=== PATIENT | female | born 1990 | race Two or more races ===

== ENCOUNTER 2024-03-20 08:20 | Outpatient (CLI) | payer MEDICAID, SELFPAY ==
--- NOTE | 2024-03-20 08:15 | CRLHL7_ITS ---
For Patients: As a result of the Century Cures Act, medical imaging exams and procedure reports are released immediately into your electronic medical record. You may view this report before your referring provider. If you have questions, please contact your health care provider. INDICATION: OB ultrasound for dates and viability. LMP: 01/23/2024. JENNIFER by LMP: 10/29/2023. . P: 1. Single. CRL: 1.7 cm, 8 w, 1 d. JENNIFER 10/29/2024. FHR: 176 bpm. Gestational sac: 2.7 cm, appears within normal limits. Yolk sac: 2.8 mm, appears within normal limits. Right ovary: Not visualized. Left ovary: Not visualized. IMPRESSION: 1. Single viable intrauterine . 2. Measurements are consistent with dates. 3. Tiny subchorionic hemorrhage measuring 1.2 cm in maximum diameter. BREA ZAMORA M.D. [email or web address] be/Dictated by: Brea Zamora MD @ 03/20/2024 3:22:00 PM (Electronically Signed)
== END 2024-03-20 08:21 | disposition home or self-care (01) ==
LOC: US 08:28
PROVIDERS: PCP Physician Assistant; Visit Provider Physician Assistant
DX: Z34.91 Encounter for supervision of normal pregnancy, unspecified, first trimester (principal); Z3A.08 8 weeks gestation of pregnancy
CPT/HCPCS: 76817; T1013

== ENCOUNTER 2024-03-20 10:09 | Outpatient (CLI) | payer MEDICAID, SELFPAY ==
[2024-03-20 14:25] LABS: GC DNA Amplified* NOT DETECTED (No Detected)
[2024-03-20 15:13] LABS: Chlamydia DNA Amplified* DETECTED (No Detected)
== END 2024-03-20 10:10 | disposition home or self-care (01) ==
PROVIDERS: PCP Physician Assistant; Visit Provider Physician Assistant
DX: Z34.91 Encounter for supervision of normal pregnancy, unspecified, first trimester (principal); Z3A.08 8 weeks gestation of pregnancy
CPT/HCPCS: 86592; 86703; 86704; 86706; 86762; 86787; 86803; 86850; 86900; 86901; 87086; 87340; 87491; 87591

== ENCOUNTER 2024-04-18 15:30 | Outpatient (CLI) | payer MEDICAID, SELFPAY ==
[2024-04-18 18:33] LABS: Chlamydia DNA Amplified* NOT DETECTED (No Detected); GC DNA Amplified* NOT DETECTED (No Detected)
== END 2024-04-18 15:31 | disposition home or self-care (01) ==
LOC: NFLDREF 16:19
PROVIDERS: Visit Provider Obstetrics & Gynecology
DX: A74.9 Chlamydial infection, unspecified (principal)
CPT/HCPCS: 87491; 87591

== ENCOUNTER 2024-05-28 17:25 | Emergency (ER) | payer BC, SELFPAY ==
[2024-05-28 17:32] VITALS: BP 125/74; PULSE 91; RESP 16; TEMP 36.9; O2SAT 98; BMI 27.6
[2024-05-28 18:01] LABS: Appearance Urine Clear (Clear); Bilirubin Urine Negative (Negative); Blood Urine Negative (Negative); Color Urine Yellow (Yellow); Glucose Urine Negative (Negative); Ketones Urine Negative (Negative); Leukocyte Esterase Urine Negative (Negative); Nitrite Urine Negative (Negative); Protein Urine Negative (Negative); Specific Gravity Urine 1.015 (1.000-1.030); Urobilinogen Urine 0.2 (0.2-1.0)
[2024-05-28 18:11] LABS: RBC Urine 0-2 (0-2); WBC Urine 0-2 (0-5)
[2024-05-28 18:12] LABS: Squamous Epithelial Cell Urine Few (None-Few)
--- NOTE | 2024-05-28 18:28 | ED.GENADULT ---
HPI - General Adult General Chief complaint: OB/Uterine Contractions Stated complaint: 20 wks preg, slight bleeding and severe cramping Time Seen by Provider: 05/28/24 18:13 Source: patient Mode of arrival: ambulatory Limitations: no limitations History of Present Illness HPI narrative: 33-year-old female, at 18.4 weeks coming in today complaining of vaginal pressure. Patient states that if she stands up for a long time she feels a lot of pressure in the vaginal area, including her labia. states that she feels that her veins are bulging externally. She states that she had 1 drop of blood today that she believes is vaginal. She states that she also had clear vaginal discharge x1 earlier today. She states that was a very small amount. Did not soak through her pants. She denies cramping or contractions. She denies constipation. She denies dysuria. Denies abdominal pain, fevers, chills or vomiting. Related Data Home Medications ?Medication ?Instructions ?Recorded ?Confirmed docosahexaenoic acid 200 mg mg PO 03/20/24 05/15/24 capsule ( DHA) calcium carbonate (Tums) 200 mg PO BID PRN 04/18/24 05/15/24 Allergies Allergy/AdvReac Type Severity Reaction Status Date / Time No Known Drug Allergies Allergy Verified 05/15/24 15:23 Review of Systems Status of ROS: Reports: 10 or more systems reviewed and unremarkable except as noted in History and below [facility] Medical History History of vaginal delivery Surgical History History of abdominoplasty ?Z98.890 - Other specified postprocedural states (ICD-10) Social History Narrative: SOCIAL HISTORY: Occupation: Homemaker. Marital status: Significant other. Mu-Ism/cultural needs: no. Chemical or radiation exposure: no. Pre- tobacco use: 5 per day, quit with positive test Pre- alcohol use: no. Current tobacco use: no. Current alcohol use: no. Recreational drug use: no. Dietary restrictions: no. Blood transfusion acceptable in an emergency: yes. PSYCHOSOCIAL HISTORY: History of depression or currently depressed: no. Current or past physical, emotional, or sexual mistreatment: no. Problems that will make it hard to make it to appointments: no. Little interest or pleasure in doing things: several days Feeling down, depressed, or hopeless: nearly every day Exam Narrative: Exam Narrative: Well-nourished well-developed patient in no acute distress. Alert and oriented. Answers questions appropriately. Mood and affect are appropriate. Thoughts are goal oriented and rational. No tangential or magical thinking noted. Patient speaks in full sentences without needing to catch her breath. She does not appear ill or toxic. HEENT: Normocephalic atraumatic. Pupils are equally round reactive to light. Extraocular muscles are intact. Conjunctivae are moist without any icterus noted. Moist mucous membranes. : Normal external female genitalia. There is no labial swelling, there is no areas of fluctuance, tenderness. There is no evidence of abscess or swollen glands. There is no vaginal bleeding, no vaginal discharge in the vaginal vault. No fluid noted in the vault. There is no tenderness to palpation of the vaginal nam. There is no swollen vasculature noted, no erythema. There is no vaginal dryness or atrophy. Exam was entirely normal. However, when I touch the patient's labia she states that it is uncomfortable on both sides. Const: Vital Signs, click to edit/add: Vital Signs - 24 hr 05/28/24 17:32 Temperature 98.4 F Pulse Rate [Pulse Oximeter] 91 Respiratory Rate 16 Blood Pressure [Ri ght Upper Arm] 125/74 Pulse Oximetry 98 Oxygen Delivery Me thod Room Air Course Vital Signs Vital signs: Initial Vital Signs Temperature 98.4 F 05/28/24 17:32 Temperature Source Temporal Artery Scan 05/28/24 17:32 Pulse Rate 91 05/28/24 17:32 Respiratory Rate 16 05/28/24 17:32 Blood Pressure 125/74 05/28/24 17:32 Blood Pressure Mean 91 05/28/24 17:32 Pulse Oximetry 98 05/28/24 17:32 Oxygen Delivery Method Room Air 05/28/24 17:32 Vital Signs Temperature 98.4 F 05/28/24 17:32 Pulse Rate 91 05/28/24 17:32 Respiratory Rate 16 05/28/24 17:32 Blood Pressure 125/74 05/28/24 17:32 Pulse Oximetry 98 05/28/24 17:32 Oxygen Delivery Method Room Air 05/28/24 17:32 Temperature 98.4 F 05/28/24 17:32 Pulse Rate 91 05/28/24 17:32 Respiratory Rate 16 05/28/24 17:32 Blood Pressure 125/74 05/28/24 17:32 Pulse Oximetry 98 05/28/24 17:32 Oxygen Delivery Method Room Air 05/28/24 17:32 Medical Decision Making MDM Narrative Medical decision making narrative: 33-year-old female with sensation of pressure in her vagina. We discussed this can happen with each subsequent . I discussed with her that her exam is entirely normal today. Patient was reassured. I discussed following up with her primary care provider if she feels like her symptoms are not improving or certainly if they are getting worse. Patient had no other questions. Lab Data Labs: Lab Results 05/28/24 Range/Units 17:50 Urine Color Yellow (Yellow) Urine Appearance Clear (Clear) Urine pH 6.0 (5.0-8.5) Ur Specific [place] 1.015 (1.000-1.030) Urine Protein Negative (Negative) Urine Glucose (UA) Negative (Negative) Urine Ketones Negative (Negative) Urine Blood Negative (Negative) Urine Nitrite Negative (Negative) Urine Bilirubin Negative (Negative) Urine Urobilinogen 0.2 (0.2-1.0) Ur Leukocyte Esterase Negative (Negative) Urine RBC 0-2 (0-2) Urine WBC 0-2 (0-5) Ur Squamous Epith Cells Few (None-Few) Urine Bacteria None (None) Discharge Plan Discharge Clinical Impression: Discomfort of vagina Patient Disposition: Home, Self-Care Condition: Stable Additional Instructions: Follow-up with your OBGYN as scheduled. Prescriptions: No Action DHA 200 mg capsule PO calcium carbonate [Tums] 200 mg calcium (500 mg) tablet,chewable 200 mg PO BID PRN Follow Up/Referrals: Provider,Not a Local [Primary Care Provider] - Stand Alone Forms: [facility] Info Instructions
[2024-05-28 18:52] VITALS: BP 125/74; PULSE 91; RESP 16; TEMP 36.9
== END 2024-05-28 18:56 | disposition home or self-care (01) ==
LOC: ED 18:59
PROVIDERS: Emergency Provider Family Medicine
DX: N89.8 Other specified noninflammatory disorders of vagina (principal)
CPT/HCPCS: 81001; 99283; 99284

== ENCOUNTER 2024-06-12 14:06 | Outpatient (CLI) | payer BC, SELFPAY ==
--- NOTE | 2024-06-12 14:00 | CRLHL7_ITS ---
For Patients: As a result of the Century Cures Act, medical imaging exams and procedure reports are released immediately into your electronic medical record. You may view this report before your referring provider. If you have questions, please contact your health care provider. INDICATION: Evaluate anatomy. COMPARISON: 03/20/2024 TECHNIQUE: Real time ramirez scale imaging of the fetus was performed as well as color Doppler analysis of the umbilical vessels. FINDINGS: Sonographic imaging demonstrates a single living intrauterine gestation. Fetus demonstrates a regular cardiac rate of 142 beats per minute. Fetus has a variable position. The placenta lies posteriorly without evidence of placenta previa. Edge of the placenta is located 4.7 cm from the internal cervical os. Amniotic fluid volume appears normal. Single deepest vertical pocket: 4.6 cm. The cervix is closed and measures 4.3 cm in length. The composite ultrasound gestational age is calculated at 19 weeks 5 days with an estimated sonographic due date of 11/01/2024. The estimated weight is 289 grams which lies at the 12th %. The following biometric measurements were obtained: Biparietal diameter: 4.5 cm/19 weeks 3 days 23rd% Head circumference: 17.1 cm/19 weeks 5 days 23rd% Abdominal circumference: 13.9 cm/19 weeks 2 days 19th% Femur length: 3.0 cm/19 weeks 3 days 17th% The HC/AC ratio measures: 1.23 range (1.08-1.26) On anatomic survey, there is a normal appearance of the cerebral ventricles, cavum septi pellucidi, cisterna magna and cerebellum. The nose, lips, and facial profile appear normal. The cervical, thoracic and lumbar spine are well visualized and appear normal. There is a normal four-chamber heart view and the left and right ventricular outflow tracts appear normal. The diaphragm and stomach appear normal. The kidneys and bladder also appear normal. There is a normal three-vessel cord and cord insertion site. The four extremities appear normal. IMPRESSION: Normal OB ultrasound exam with concordance of clinical and sonographic dating. No intrinsic abnormalities noted on anatomic survey. Dictated by Clifton Narvaez MD @ 06/13/2024 9:50:33 AM (Electronically Signed)
== END 2024-06-12 14:07 | disposition home or self-care (01) ==
LOC: US 14:09
PROVIDERS: Visit Provider Registered Nurse
DX: Z34.92 Encounter for supervision of normal pregnancy, unspecified, second trimester (principal); Z3A.19 19 weeks gestation of pregnancy
CPT/HCPCS: 76805; 87086; T1013

== ENCOUNTER 2024-08-05 14:25 | Outpatient (CLI) | payer BC, SELFPAY ==
--- NOTE | 2024-08-05 14:45 | CRLHL7_ITS ---
For Patients: As a result of the Century Cures Act, medical imaging exams and procedure reports are released immediately into your electronic medical record. You may view this report before your referring provider. If you have questions, please contact your health care provider. OB ULTRASOUND FOLLOWUP LIMITED/BIOPHYSICAL PROFILE, 08/05/2024 CLINICAL HISTORY: Encounter for supervision of normal . COMPARISON: 06/12/2024. TECHNIQUE: Transabdominal OB ultrasound. FINDINGS: JENNIFER by LMP: 10/29/2024. GA: 27 weeks 6 days. Single Gestation. CERVIX: Visualized. Measurement: 4.0 cm POSITIONING: Transverse. AMNIOTIC FLUID: 5.7 cm. BIOPHYSIAL PROFILE: 8 Total Score 2 Gross Body Movements 2 tone 2 Respiratory Activity 2 Amniotic Fluid PLACENTA: Technique: Transabdominal. PLACENTA POSITION: Posterior. DOPPLERS: Heart Rate: 9 bpm. Umbilical Artery: 2.9/4.1 S/D. BIOMETRY: BPD: 6.7 cm, 27 weeks 1 day. 17% HC: 25.3 cm, 27 weeks 3 days. 11% AC: 22.9 cm, 27 weeks 2 days. 24% FL: 4.8 cm, 26 weeks 1 day. 3% FL/AC Ratio: 20.99% HC/AC Ratio: 1.10. EFW: 991 grams, 2 lb 3 oz. Age by this US: 27 weeks 0 days. JENNIFER by this US: 11/04/2024. Percentile by JENNIFER: 9.8% IMPRESSION: Single live intrauterine gestation at 27 weeks 0 days. JENNIFER 11/04/2024. Estimated weight measures 992 grams which lies at the 10th percentile. positioning is transverse, head maternal left. Maya Sousa M.D. Diagnostic/Breast Radiologist [email or web address] Transcribed: 11:52 am DW/Dictated by: Maya Sousa MD @ 08/06/2024 10:00:00 AM (Electronically Signed)
== END 2024-08-05 14:26 | disposition home or self-care (01) ==
LOC: US 14:26
PROVIDERS: Visit Provider Physician Assistant
DX: Z34.92 Encounter for supervision of normal pregnancy, unspecified, second trimester (principal); Z3A.27 27 weeks gestation of pregnancy
CPT/HCPCS: 76816; 76819; 76820; 86592; T1013

== ENCOUNTER 2024-09-02 11:28 | Outpatient (CLI) | payer BC, SELFPAY ==
--- NOTE | 2024-09-02 11:30 | CRLHL7_ITS ---
For Patients: As a result of the Century Cures Act, medical imaging exams and procedure reports are released immediately into your electronic medical record. You may view this report before your referring provider. If you have questions, please contact your health care provider. INDICATION: IUGR TECHNIQUE: Limited transabdominal two-dimensional ramirez-scale ultrasound examination. COMPARISON: 08/05/2024 FINDINGS: There is a living fetus in cephalic lie with gestational age of 31 weeks 6 days and EDC of 10/29/2024. The heart rate is measured at 141 beats per minute and the rhythm appears regular. The amniotic fluid volume is within normal limits with single deepest pocket of 5.2 cm. The placenta is posterior and superior to the cervical os. There is no evidence of previa. Cord arterial S/D = 3.3. IMPRESSION: 1. Living fetus in cephalic lie with gestational age of 31 weeks 6 days and EDC of 10/29/2024. 2. Cord arterial S/D = 3.3 and single deepest pocket within normal limits at 5.2 cm. Dictated by Ian Loza MD @ 09/03/2024 5:57:02 AM (Electronically Signed)
== END 2024-09-02 11:29 | disposition home or self-care (01) ==
LOC: US 11:29
PROVIDERS: Visit Provider Obstetrics & Gynecology
DX: O36.5930 Maternal care for other known or suspected poor fetal growth, third trimester, not applicable or unspecified (principal); Z3A.31 31 weeks gestation of pregnancy
CPT/HCPCS: 76815; 76820; T1013

== ENCOUNTER 2024-09-10 13:01 | Outpatient (CLI) | payer BC, SELFPAY ==
--- NOTE | 2024-09-10 13:00 | CRLHL7_ITS ---
For Patients: As a result of the Cures Act, medical imaging exams and procedure reports are released immediately into your electronic medical record. You may view this report before your referring provider. If you have questions, please contact your health care provider. INDICATION: IUGR. Gestational age 33 weeks. TECHNIQUE: Limited transabdominal grayscale and color Doppler pelvic/OB ultrasound. COMPARISON: 09/02/2024. FINDINGS: Single living intrauterine in vertex presentation. heart rate is 158 beats per minute. Posterior placenta is otherwise unremarkable in appearance. Amniotic fluid is within normal limits, with single deepest pocket of 6.3 cm. Cord arterial S/D is 3.2. IMPRESSION: 1. Single living intrauterine in vertex presentation 2. Cord arterial S/D is 3.2. 3. Amniotic fluid is within normal limits. Dictated by Ryan Hansen MD @ 09/11/2024 10:38:13 AM Dictated by: Ryan Hansen MD @ 09/11/2024 10:38:31 (Electronically Signed)
== END 2024-09-10 13:02 | disposition home or self-care (01) ==
LOC: US 13:01
PROVIDERS: Visit Provider Obstetrics & Gynecology
DX: O36.5930 Maternal care for other known or suspected poor fetal growth, third trimester, not applicable or unspecified (principal); Z3A.33 33 weeks gestation of pregnancy
CPT/HCPCS: 76815; 76820; T1013

== ENCOUNTER 2024-09-21 07:54 | Outpatient (CLI) | payer BC, SELFPAY ==
--- NOTE | 2024-09-21 08:05 | CRLHL7_ITS ---
For Patients: As a result of the Cures Act, medical imaging exams and procedure reports are released immediately into your electronic medical record. You may view this report before your referring provider. If you have questions, please contact your health care provider. INDICATION: Failed biophysical profile. IUGR. COMPARISON: Ob ultrasound dated 10 September 2024. FINDINGS: Fetus: Single. Presentation: Breech. cardiac dgrambce=362 beats per minute and regular. Amniotic fluid: Adequate with the single deepest pocket=5.8 cm. Placenta: Posterior, os clear. The cervix is not well visualized. Biophysical profile score=6 out of a possible 8. No gross body movements identified. Dictated by Héctor Sousa MD @ 09/21/2024 10:18:52 AM Dictated by: Héctor Sousa MD @ 09/21/2024 10:19:04 (Electronically Signed)
[2024-09-21 08:21] VITALS: RESP 16; TEMP 36.9
[2024-09-21 08:22] VITALS: BP 114/72; PULSE 107
[2024-09-21] MEDS: BETAMETHASONE SOD PHOS/ACETATE 6 MG/ML ML 12 MG IM (10:29)
--- NOTE | 2024-09-21 10:42 | P.OBT_ITS ---
History of Present Illness History of Present Illness Time Seen by Provider: 10:20 History of Present Illness: 34 year old at 34 weeks gestation by LMP, presents to triage for schedule monitoring requested by MFM. Patient's is complicated by growth restriction, where she had a repeat growth ultrasound, UA Dopplers and testing with MFM in [place] yesterday. They called and gave report to on- call provider, Dr. Oneill, in the setting of normal Dopplers but as 6/ unofficial BPP with reactive NST. Given prematurity, a repeat BPP was requested at our facility today. On presentation, nausea denies contractions, vaginal bleeding, leaking of fluid. She endorses movement. She has several questions about her MFM visit yesterday, timing and location of delivery. I reviewed the diagnosis of growth restriction in respective risks, where in the setting of abnormal testing yesterday we do need to repeat this today. I explained that any time, we would have a low threshold to proceed with delivery in the setting of growth restriction if complications were to arise. Reviewed that we do not deliver under 35 weeks at our facility and that we do not have access to a NICU. She noted that MFM provider said she would require due to breech malpresentation, I affirmed this is subject to change or an ECV could be considered. Ultimately, mode of delivery will be dictated by the specifics of maternal/ condition when delivery is required. Meds Home Medications and Allergies Home Medications ?Medication ?Instructions ?Recorded ?Confirmed ?Type docosahexaenoic acid 200 mg mg PO 03/20/24 09/16/24 History capsule ( DHA) calcium carbonate (Tums) 200 mg PO BID PRN 04/18/24 09/21/24 History Allergies Allergy/AdvReac Type Severity Reaction Status Date / Time No Known Drug Allergies Allergy Verified 09/16/24 15:37 [facility] Medical History History of vaginal delivery Surgical History History of abdominoplasty ?Z98.890 - Other specified postprocedural states (ICD-10) Social History Narrative: SOCIAL HISTORY: Occupation: Homemaker. Marital status: Significant other. Faith/cultural needs: no. Chemical or radiation exposure: no. Pre- tobacco use: 5 per day, quit with positive test Pre- alcohol use: no. Current tobacco use: no. Current alcohol use: no. Recreational drug use: no. Dietary restrictions: no. Blood transfusion acceptable in an emergency: yes. PSYCHOSOCIAL HISTORY: History of depression or currently depressed: no. Current or past physical, emotional, or sexual mistreatment: no. Problems that will make it hard to make it to appointments: no. Smoking Status: Former smoker How often do you have a drink containing alcohol: never AUDIT-C Alcohol total score: 0 Non-prescribed substance use: denies use History History 3 Elective abortions Para 2 Spontaneous abortions Hx # Term Pregnancies Ectopic pregnancies Hx # Pregnancies Multiple births Number of Living Children 2 Past Pregnancies Del. Date GA/Weeks Outcome Route wt Inf Gender Labor Lgth Anesthesia Location Provider Compli 01/16/14 40 live - full term vaginal delivery 7 lb 7 oz Female 2 hrs 05/24/19 40 live - full term vaginal delivery 7 lb 7 oz Male 12 hrs Delivery Date: 01/16/14 Last Updated by: Ann Kim ~ [employer], [facility] Delivery Date: 05/24/19 Last Updated by: Ann Kim ~ [employer], [facility] OB - H&P: Exam Physical Exam Vital signs: Temp Pulse Resp BP 98.4 F 107 H 16 114/72 09/21/24 08:21 09/21/24 08:22 09/21/24 08:21 09/21/24 08:22 Narrative: General: Alert and oriented, no acute distress Psych: Appropriate mood and affect Abdomen: Gravid. NST: Initial monitoring period was notable for baseline of 140-150 beats per minute, primarily minimal variability, several 10x10 accelerations and no decelerations. BPP: 6/8 for gross body movement Repeat NST: Baseline of 150 bpm, minimal variability, intermittent 10x10 accelerations and no decelerations. Despite extended monitoring, her NST is technically nonreactive at 34 weeks. BPP totals 6/10, equivocal. Assessment and Plan Assessment and plan (1) Anemia affecting : Status: Acute (2) IUGR (intrauterine growth restriction): Status: Acute (3) Positive Chlamyida test: Problem comment: at first visit. DARIAN 04/18/2024 Status: Acute (4) Abnormal test: Status: Acute Plan Prachi is a 34-year-old seen in triage at 34 weeks 4 days gestational age for scheduled testing. is complicated by growth restriction, with a 6/10 BPP yesterday at [facility]. They requested a repeat BPP at our facility today. is otherwise complicated by tobacco use disorder, iron deficiency anemia, and chlamydia infection in (treated). On arrival, Prachi is feeling well with no acute concerns. She endorses movement. Initial extended NST was technically not reactive, due to failure to meet 15 x 15 acceleration requirement. Minimal variability was noted predominantly as well. She then proceeded to a BPP, which was 6/8 for absent gross movement. Repeat extended NST was notable again for non reactivity, baseline of 150 beats per minute, minora were variability, 10 x 10 accelerations (but not 15 x 15 as required by gestational age) and no decelerations. Unfortunately, this does constitute a 6/10 BPP or equivocal result. Given her prior equivocal study, this could be considered an indication for delivery in the setting of her growth restriction or at the very least extended monitoring. I explained that our facility do not offer delivery under 35 weeks, where transfer of care would be required. Paolo was on divert. Ultimately, physician to physician as Sbar was provided and patient was accepted by Dr. Toth at [facility]. Betamethasone #1 was administered prior to transfer. Anticipate extended monitoring overnight versus delivery if necessitated by her repeat testing. Entire conversation/counseling was completed with an in-person digital sales assistant. Patient expressed understanding to the above plan and is agreeable.
[2024-09-21 11:03] VITALS: BP 118/75; PULSE 88; PULSE 91; RESP 16; TEMP 36.9; O2SAT 95
--- NOTE | 2024-09-21 11:54 | PC.OBNST ---
NST Note NST Note Start: 09/21/24 08:08 Freq: ONCE Status: Active Protocol: Document 09/21/24 11:53 CUDDYH (Rec: 09/21/24 11:54 CUDDYH [id number]) NST Note 3 Para (# of births) 2 EDC 10/29/24 Gestational Age In Weeks & Days 34 Weeks & 4 Days Other Complaints BPP and NST Reactive No Appropriate for Gestational Age No RN Daxa Thompson RN Date 09/21/24 Reactive No Appropriate for Gestational Age No RN Dr. Adler Date 09/21/24 OB NST charge Yes Complete NST Note via Write Note Yes The provider's electronic signature indicates the NST is reactive/appropriate for gestational age. *Note to provider: If an addendum is required, open the patient's chart and click on the note under the Nurse/Allied Health tab.
== END 2024-09-21 11:10 | disposition other institution (70) ==
LOC: OB CLI 07:56 → OB 08:00
PROVIDERS: Visit Provider Obstetrics & Gynecology
DX: O28.9 Unspecified abnormal findings on antenatal screening of mother (principal); Z3A.34 34 weeks gestation of pregnancy
CPT/HCPCS: 59025; 76819; G0463; T1013; J0702

== ENCOUNTER 2024-09-21 11:05 | Outpatient (CLI) | payer BC, SELFPAY | END 2024-09-21 11:06 | disposition home or self-care (01) | LOC: AMB 09-22 12:54 | PROVIDERS: Visit Provider Family Medicine | DX: O47.03 False labor before 37 completed weeks of gestation, third trimester (principal); Z3A.34 34 weeks gestation of pregnancy | CPT/HCPCS: A0425; A0428 ==